=== PATIENT | male | born 2000 | race Caucasian/White ===

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

== ENCOUNTER 2022-02-04 20:41 | Emergency (ER) | payer OTHER ==
[2022-02-04 20:59] VITALS: BP 144/91; PULSE 108; RESP 20; TEMP 97.9; BMI 35.2
== END 2022-02-04 23:22 | disposition home or self-care (01) ==
LOC: JER 20:41
DX: R05.1 Acute cough (principal); J02.9 Acute pharyngitis, unspecified; T16.1XXA Foreign body in right ear, initial encounter
CPT/HCPCS: 0241U-QW; 99283-25